=== PATIENT | male | born 1950 | race Caucasian/White ===

== ENCOUNTER 2023-10-05 11:06 | Emergency (ER) | payer MEDICARE, OTHER, SELFPAY ==
[2023-10-05 11:08] VITALS: BP 166/91
[2023-10-05 11:40] VITALS: BMI 27.5
--- NOTE | 2023-10-05 11:53 | ED.GENMED ---
History of Present Illness
General
Chief Complaint: Bowel Problem
Source: patient
Exam Limitations: none
Time Seen by Provider: 10/05/23 11:16
Nursing documentation reviewed up to this point in time: agreed with
Travel History
Have you had any contact with someone who has COVID-19?: No
Do you have any symptoms of coronavirus? Fever > 100 degrees, chills, cough, shortness of breath, sore throat, loss of taste or smell, muscle aches, or headache?: No
History of Present Illness
History of Present Illness:
73 yo male presents with constipation. No relief after self administered Fleets enema. Last BM 3 days ago. Has been more constipated past week, no know aggravating factors except at bedside states her\\ doesn't drink enough water and used to
take Metamucil but doesn't any more. Denies abdominal pain, has mild lower back pain. Denies n/v.
Past History
Past History
ED Past Medical History: HTN and Other (Prostate hypertrophy)
ED Past Surgical History: Urological (TURP)
Review of Systems
Review of Systems
Allergies reviewed?: Yes
All Other Systems: ROS reviewed and negative except as documented in HPI and ROS
Constitutional: Denies fever
Respiratory: Denies trouble breathing
Cardiac: Denies chest pain
ABD/GI: Reports constipated; Denies abdominal pain, nausea, vomiting, diarrhea, bloody stools, black stools or anorexia
: Denies dysuria
Musculoskeletal: Reports back pain (mild low back pain)
Skin: Reports no symptoms
Neurological: Reports no symptoms
Phy Exam
Physical Exam
Physical Exam:
GENERAL: No acute distress. A&Ox3.
CONSTITUTIONAL: Afebrile.
RESPIRATORY: Regular respirations, nonlabored, lungs clear.
CARDIOVASCULAR: Regular rate and rhythm, no murmurs, no rubs.
GI: Soft, nontender, normal BS
Rectal: hard stool in rectal vault
MUSCULOSKELETAL: Moves with ease. Well perfused.
SKIN: Warm, dry, pink
PSYCH: Normal mood and affect. Well kept, interactive and appropriate
NEUROLOGIC: Awake, alert and oriented. No focal neurological deficits
Course
Orders/Labs/Results
Orders:
Orders
10/05/23 11:52
Enema- Treatment ONCE
Type: Mineral Oil
10/05/23 11:57
Mineral Oil Enema [Fleet Mineral Oil Enema] 133 ml .ROUTE .STK-MED ONE
10/05/23 12:03
Mineral Oil Enema [Fleet Mineral Oil Enema] 133 ml RECTAL NOW STA
10/05/23 13:33
Enema- Treatment ONCE
Type: Soap Suds
Vital Signs
Initial and Last Documented VS:
Initial Vital Signs
Temp Pulse Resp BP Pulse Ox
98.4 F 94 18 166/91 99
10/05/23 11:08 10/05/23 11:08 10/05/23 11:08 10/05/23 11:08 10/05/23 11:08
Last Documented Vital Signs
Temp Pulse Resp BP Pulse Ox
98.4 F 94 18 166/91 99
10/05/23 11:08 10/05/23 11:08 10/05/23 11:08 10/05/23 11:08 10/05/23 11:08
MDM/Problems Addressed
Differential Diagnosis Includes:
constipation, fecal impaction
MDM/Problems Addressed:
73 yo male presents with constipation. No relief after self administered Fleets enema. Last BM 3 days ago. Has been more constipated past week, no know aggravating factors except at bedside states her\\ doesn't drink enough water and used to
take Metamucil but doesn't any more. Denies abdominal pain, has mild lower back pain. Denies n/v.
Abdomen benign
Rectal: Firm stool in rectal vault.
1:46 PM
No result after Fleet enema
Patient disimpacted manually by this examiner for a few pieces of hard stool, soapsuds enema ordered
2:17 PM
large bowel movement after soapsuds enema, patient feels much better, stable for discharge.
No sign of bowel obstruction
*Critical Care Note
Total Time (30-74mins, 75-104mins- exclusive of procedures): Not Applicable
ED Attending Note
-
Portions of this chart may have been created with voice recognition software.� Occasional wrong word or��sound alike� substitutions may have occurred due to the inherent limitations of voice recognition software.
Discharge Plan
Departure
Patient Disposition: Home (Routine Discharge)
Date of Disposition: 10/05/23
Time of Disposition: 14:17
Patient with high blood pressure during this ER visit?: No
Condition: Good
Discharge Problem:
Constipation
Instructions: Constipation, Adult (DC)
Referrals:
Maki Wilkinson PA-C [Family Provider] - As needed
Activity Restrictions/Additional Instructions:
Drink at least 6 eight ounce glasses of water daily. Start your Metamucil daily again.
Interventions
Interventions:
*Risk Screen - Suicide Last Done: 10/05/23 11:08
*General Assessment Last Done: 10/05/23 11:08
*Neglect/Abuse Screening Last Done: 10/05/23 11:08
*ED COVID-19 Vaccine History Last Done: 10/05/23 11:08
*Nursing Disposition Last Done: 10/05/23 14:32
YA-Iavdnc-Ahbnvbqwmu Assessment Last Done: 10/05/23 11:40
Discharge Date and Time
Discharge Date/Time: 10/05/23 14:32
Print Language: POLISH
[2023-10-05] MEDS: FLEET MINERAL OIL ENEMA 133 ML RECTAL (12:03)
== END 2023-10-05 14:32 | disposition home or self-care (01) ==
LOC: EMR 11:06
PROVIDERS: EMERGENCY PHYSICIAN Emergency Medicine; FAMILY PHYSICIAN Physician Assistant
DX: K59.00 Constipation, unspecified (principal)
CPT/HCPCS: 99283

== ENCOUNTER → 2025-01-03 07:26 | Outpatient (REF) | payer MEDICARE, OTHER, SELFPAY | LOC: EMG 07:26 | PROVIDERS: ATTENDING PHYSICIAN Physician Assistant | DX: G58.9 Mononeuropathy, unspecified (principal); R20.0 Anesthesia of skin | CPT/HCPCS: 95886; 95910 ==